=== PATIENT | male | born 1945 | race Hispanic/Latino ===

== ENCOUNTER 2017-08-01 09:20 | Day surgery (SDC) | payer MEDICARE ==
[2017-08-01] MEDS ORDERED: ZOFRAN IV PRN (12:38)
[2017-08-01] MEDS ORDERED: DILAUDID IV PRN (12:38)
--- NOTE | 2017-08-01 12:38 | Anesthesia Day of Surgery ---
Anesthesia Day of Surgery - Day of Surgery Patient Examined: Yes Patient H&P Reviewed: Yes Patient is NPO: Yes
--- NOTE | 2017-08-01 12:38 | Anesthesia Consultation ---
Anesthesia Consult and Med Hx Date of service: 08/01/17 - Airway Anesthetic Teeth Evaluation: Good ROM Head & Neck: Adequate Mental/Hyoid Distance: Adequate Mallampati Class: Class III Intubation Access Assessment: Possibly Difficult - Pulmonary Exam CTA: Yes - Cardiac Exam Cardiac Exam: RRR - Pre-Operative Health Status ASA Pre-Surgery Classification: ASA3 Proposed Anesthetic Plan: General - Pulmonary Hx Smoking: Yes (STOPPED 06/18/17 , 1 PPD X 52 YRS) Hx Asthma: No COPD: Yes Hx Pneumonia: Yes (2011) Hx Sleep Apnea: No (ERENDIRA PRE SCREEN LOW RISK) - Cardiovascular System Hx Hypertension: No (ON LISINOPRIL TO "PROTECT HEART") Hx Coronary Artery Disease: No Hx Heart Attack/AMI: No Hx Angina: No Hx Percutaneous Transluminal Coronary Angioplasty (PTCA): No Hx Pacemaker: No Hx Internal Defibrillator: No Hx Valvular Heart Disease: No Hx Heart Murmur: No Hx Peripheral Vascular Disease: No - Central Nervous System Hx Seizures: No CVA: No Hx Psychiatric Problems: No - Gastrointestinal Hx Ulcer: No - Endocrine Hx Renal Disease: Yes (KIDNEY STONES, STENT) Hx End Stage Renal Disease: No Hx Cirrhosis: No Hx Liver Disease: No Hx Hypothyroidism: No Hx Hyperthyroidism: No - Other Systems Hx Cancer: Yes (PROSTATE CA, S/P SEED IMPLANT)
[2017-08-01] MEDS ORDERED: VERSED IV NR (13:00)
[2017-08-01] MEDS ORDERED: NACL 0.9% 1000 ML 1,000 ML IV SCH (13:00)
[2017-08-01] MEDS ORDERED: ANCEF/STERILE WATER 2 GM/20 ML IV NR (14:00)
[2017-08-01] MEDS ORDERED: PROVENTIL IH ONE (15:53)
[2017-08-01] MEDS ORDERED: PROVENTIL IH NR (16:00)
--- NOTE | 2017-08-01 16:10 | Short Stay Summary ---
Short Stay Documentation Date of service: 08/01/17 - History H&P: obtained from office - Allergies and Medications Current Medications: Allergies procaine HCl [From Novocain] Allergy (Severe, Verified 12/30/12 23:17) Swelling Verified By Patient Home Medications Medication Instructions Recorded Confirmed Last Taken Type ALBUTEROL Inhaler [Proair] 2 puff IH QID 07/23/17 08/01/17 08/01/17 08:30 History Aspirin [Lo-Dose Aspirin EC] 81 mg PO DAILY 07/23/17 08/01/17 07/29/17 09:00 History Cyanocobalamin (Vitamin B-12) 1,000 mcg PO DAILY 07/23/17 08/01/17 07/31/17 09: 00 History [Vitamin B12] Latanoprost 0.005% [Xalatan 0.005%] 1 drop OP QPM 07/23/17 08/01/17 07/31/17 21: 00 History Lisinopril [Prinivil] 5 mg PO DAILY 07/23/17 08/01/17 08/01/17 07:30 History Tiotropium Br/Olodaterol HCl 4 gm IH QHS 07/23/17 08/01/17 07/31/17 20:30 History [Stiolto Respimat Inhal Sparks] Active Medications Albuterol (Proventil) 2.5 mg IH PREOP NR Stop: 08/01/17 23:59 Last Admin: 08/01/17 15:55 Dose: 2.5 mg Cefazolin Sodium (Ancef/Sterile Water 2 Gm/20 Ml) 2 gm IV PREOP NR Stop: 08/01/17 23:59 Hydromorphone HCl (Dilaudid) 0.5 mg IV Q10MIN PRN PRN Reason: Pain , Severe (7-10) Sodium Chloride (Nacl 0.9% 1000 Ml) 1,000 mls @ 100 mls/hr IV DIRECT PAM Last Admin: 08/01/17 13:00 Dose: 100 mls/hr Midazolam HCl (Versed) 2 mg IV PREOP NR Stop: 08/01/17 23:59 Ondansetron HCl (Zofran) 4 mg IV ONCE PRN PRN Reason: Nausea And Vomiting - Brief post op/procedure progress note Date of procedure: 08/01/17 Pre-op diagnosis: urethra stx stones Post-op diagnosis: other (urethral / bladder stones) Procedure: cysto rpg left; cystolithlapxy Anesthesia: GETA Findings: mult large bladder and urethral stones Surgeon: TOYA MONTERO Estimated blood loss: minimal Specimen disposition: given to patient/family Condition: stable - Hospital course Hospital course: orpacuhome - Disposition Condition at discharge: Good Disposition: DC-01 TO HOME OR SELFCARE Short Stay Discharge Plan Activity: advance as tolerated Diet: advance as tolerated Follow up with: TOYA MONTERO MD [Staff Physician] - 7 Days
[2017-08-01] MEDS ORDERED: XYLOCAINE MPF 2% ONE (16:22)
[2017-08-01] MEDS ORDERED: DIPRIVAN 10 MG/ML IV ONE (16:22)
[2017-08-01] MEDS ORDERED: WATER FOR IRRIG STERILE IR ONE ×2 (16:53)
[2017-08-01] MEDS ORDERED: OMNIPAQUE (300 MG) IR ONE (16:53)
[2017-08-01] MEDS ORDERED: DEMEROL ONE (17:36)
[2017-08-01] MEDS ORDERED: DEMEROL IV PRN (17:43)
--- NOTE | 2017-08-01 17:44 | Post Anesthesia Evaluation ---
- Post Anesthesia Evaluation Patient Participated: Yes Airway Patent: Yes Stable Respiratory Function: Yes Nausea/Vomiting: No Temp > 96.8F: Yes Pain Manageable: Yes Adequeate Hydration: Yes Anesthesia Complications: No
[2017-08-01 19:39] VITALS: BP 149/74
--- NOTE | 2017-08-02 08:48 | Fluoroscopy Report ---
Retrograde pyelogram: Bladder calculus. Initial images show no evidence of urinary tract calculus. A transurethral catheter is in place. Injected contrast media into the distal left ureter demonstrates mild dilatation of a short segment of distal ureter. The proximal ureter is not opacified. There is a small amount contrast in the urinary bladder but there is no obvious calculus identified. No other findings.
--- NOTE | 2017-09-04 21:33 | Operative Report ---
SURGEON: Greg Diaz MD ESTIMATED BLOOD LOSS: Minimal. SPECIMENS: Stones. CONDITION: Stable. PREOPERATIVE DIAGNOSES: Urethral stricture and stones. POSTOPERATIVE DIAGNOSES: Urethral and bladder stones. PROCEDURE: Cysto RPG, left, unable to visualize right, cystolitholapaxy. FINDINGS: Multiple large bladder and urethral stones. CLINICAL INDICATIONS: The patient was counseled RCBA, antibiotics, SCDs, has been evaluated by other doctors including at [facility] and ultimately decided wanted to treat here. DESCRIPTION OF PROCEDURE: Transferred to OR suite in supine position, anesthesia, dorsal lithotomy, prepped and draped in standard fashion. A 20-[place] scope passed. There was a large stone obstructing the prostatic urethral area, the urethra. A Glidewire was passed beyond this under fluoroscopic visualization. They were able to push manipulate the stone back into the bladder. At this point, we were only able to visualize the left ureteral orifice, cannulated 8-[place] cone-tipped catheter, contrast injected. Normal left distal ureter, proximal ureter, renal pelvis and calyces. No filling defects or hydro. There were 3-4 very large stones measuring approximately 3-4 cm total. The ____ lithotripter probe 9 passed. We began fragmenting sending shockwaves and fragmenting the stone into smaller and smaller pieces. They were hard stones. This was tedious intermittently. We would flush and evacuate the stones. Eventually, we were able to remove the majority of stones. Inspection of the bladder demonstrated no significant damage. At this point, in the prostatic urethra, we did identify a hidden impacted stone in the area of the urethra. We were able to manipulate, pulled this out of its pocket and removed it. At this point, a Rod catheter was inserted. Balloon inflated to 15 mL. Exam under anesthesia, bilateral descended testicles, prostate. The patient was awakened and transferred to PACU in good and stable condition. JOB# [id number] ATS/NTS
== END 2017-08-01 09:21 | disposition home or self-care (01) ==
LOC: OR 09:20
PROVIDERS: ATTEND Urology
DX: N13.5 Crossing vessel and stricture of ureter without hydronephrosis (principal); Z85.46 Personal history of malignant neoplasm of prostate; Z87.891 Personal history of nicotine dependence; J44.9 Chronic obstructive pulmonary disease, unspecified
CPT/HCPCS: 52310; 52318; 74420; A4217; C1758; J0690; J2175; J2704; J7030; Q9967